=== PATIENT | male | born 2005 | race Caucasian/White ===

== ENCOUNTER 2025-01-27 20:50 | Emergency (ER) | payer BC, SELFPAY ==
[2025-01-27 20:53] VITALS: BP 160/99
[2025-01-27 21:05] VITALS: BMI 38.7
[2025-01-27 21:10] VITALS: BP 125/79
[2025-01-27] MEDS: ADRENALIN 0.3 MG IM (21:22)
[2025-01-27] MEDS: PEPCID 20 MG IV (21:23)
--- NOTE | 2025-01-27 21:24 | ED.GENMED ---
History of Present Illness
<Karine Harrington MD - Last Filed: 01/27/25 22:34>
General
Chief Complaint: Allergic Reaction
Source: patient and family (mom)
Exam Limitations: none
Time Seen by Provider: 01/27/25 21:16
Nursing documentation reviewed up to this point in time: agreed with
<Kristin Ray MD, Resident - Last Filed: 01/28/25 00:38>
History of Present Illness
History of Present Illness:
19-year-old male without any significant past medical history presents the ER for allergic reaction. He was stung by a hornet this afternoon between 3 and 4 PM at work. He started to feel itchy all over and when he got home and took a shower he
noticed a significant rash all over his back, abdomen and lower extremities. He started to have some chest pain, SOB and lip swelling. His mom came home from work, gave him 50 mg of Benadryl and brought him to the ER for further evaluation.
Currently, patient feels like his chest tightness is decreasing and he is able to breathe better.
Past History
<Karine Harrington MD - Last Filed: 01/27/25 22:34>
Past History
ED Past Medical History: Asthma (As a young child)
Social History
Tobacco: Non-smoker
Alcohol: None
Drug: None
Personal: Single
Living: with family
Employment: Other
<Kristin Ray MD, Resident - Last Filed: 01/28/25 00:38>
Past History
ED Past Medical History: None
ED Past Surgical History: Orthopedic
Family History
Family History: Other
Review of Systems
<Karine Harrington MD - Last Filed: 01/27/25 22:34>
Review of Systems
Other source history: family
Cardiac: Reports chest pain
Skin: Reports rash
Psychiatric: Reports no symptoms
<Kristin aRy MD, Resident - Last Filed: 01/28/25 00:38>
Review of Systems
Allergies reviewed?: Yes
Constitutional: Reports no symptoms
EENT: Reports mouth swelling
Respiratory: Reports trouble breathing
Cardiac: Reports chest pain
ABD/GI: Reports no symptoms
: Reports no symptoms
Musculoskeletal: Reports no symptoms
Skin: Reports itching
Neurological: Reports no symptoms
Endocrine: Reports no symptoms
Hematologic/Lymphatic: Reports no symptoms
Phy Exam
<Karine Harrington MD - Last Filed: 01/27/25 22:34>
Physical Exam
Physical Exam:
General: Well-appearing
Head: Atraumatic
Cardiac: Regular S1, S2, no murmurs
Respiratory: Clear breath sounds bilaterally, no wheezes. Mild right lower lip swelling. Mild uvular swelling. No stridor. No pooling of saliva.
Abdomen: Soft, nontender, nondistended, normal bowel sounds in all 4 quadrants
Extremities: No peripheral edema
Skin: Diffuse hives all over trunk, abdomen, lower extremities.
<Kristin Ray MD, Resident - Last Filed: 01/28/25 00:38>
Physical Exam
Physical Exam:
General: Well-appearing
Head: Atraumatic
Cardiac: Regular S1, S2, no murmurs
Respiratory: Clear breath sounds bilaterally, no wheezes
Abdomen: Soft, nontender, nondistended, normal bowel sounds in all 4 quadrants
Extremities: No peripheral edema
Skin: Diffuse hives all over trunk, abdomen, lower extremities.
General Physical Exam
General Presentation: well appearing
General age: appears stated age
General Skin: warm, dry and other (Diffuse hives all over trunk, abdomen, lower extremities )
General Habitus: obese
General Mental: alert
General Hydration: appears well hydrated
Course
<Karine Harrington MD - Last Filed: 01/27/25 22:34>
Orders/Labs/Results
Orders:
Orders
01/27/25 21:16
Dexamethasone Sod Phosphate [Decadron] 10 mg IV NOW STA
EPINEPHrine PF [Adrenalin] 0.3 mg IM NOW STA
01/27/25 21:17
Diphenhydramine [Benadryl] 50 mg IV NOW STA
Famotidine [Pepcid] 20 mg IV NOW STA
Vital Signs
Initial and Last Documented VS:
Initial Vital Signs
Temp Pulse Resp BP Pulse Ox
98.4 F 83 18 160/99 100
01/27/25 20:53 01/27/25 20:53 01/27/25 20:53 01/27/25 20:53 01/27/25 20:53
Last Documented Vital Signs
Temp Pulse Resp BP Pulse Ox
98.4 F 74 13 126/57 96
01/27/25 20:53 01/28/25 00:00 01/28/25 00:00 01/28/25 00:00 01/28/25 00:00
<Kristin Ray MD, Resident - Last Filed: 01/28/25 00:38>
Orders/Labs/Results
Orders:
Orders
01/27/25 21:16
Dexamethasone Sod Phosphate [Decadron] 10 mg IV NOW STA
EPINEPHrine PF [Adrenalin] 0.3 mg IM NOW STA
01/27/25 21:17
Diphenhydramine [Benadryl] 50 mg IV NOW STA
Famotidine [Pepcid] 20 mg IV NOW STA
Vital Signs
Initial and Last Documented VS:
Initial Vital Signs
Temp Pulse Resp BP Pulse Ox
98.4 F 83 18 160/99 100
01/27/25 20:53 01/27/25 20:53 01/27/25 20:53 01/27/25 20:53 01/27/25 20:53
Last Documented Vital Signs
Temp Pulse Resp BP Pulse Ox
98.4 F 74 13 126/57 96
01/27/25 20:53 01/28/25 00:00 01/28/25 00:00 01/28/25 00:00 01/28/25 00:00
<Karine Harrington MD - Last Filed: 01/27/25 22:34>
MDM/Problems Addressed
Chronic conditions affecting care: Asthma
Acute Exacerbation and/or Progression of Chronic Illness:
Patient is breathing comfortably with no sign of any exacerbation of asthma or wheezing
<Kristin Ray MD, Resident - Last Filed: 01/28/25 00:38>
MDM/Problems Addressed
Differential Diagnosis Includes:
Allergic reaction, asthma, URI
MDM/Problems Addressed:
Presentation consistent with acute allergic reaction to hornet sting. Patient received 50 mg of Benadryl prior to admission. Will provide dexamethasone, epi, famotidine to further treat the allergic reaction. Vitals stable satting well on room
air.
<Karine Harrington MD - Last Filed: 01/27/25 22:34>
*Pulse Oximetry
SaO2: 97
Oxygen Mode of Delivery: Room air
Patient hypoxic: no
*EKG
Interpreted by ED Provider?: NA
*Field Laborer Interpretation
Rate: normal
Interpretation: normal
Rhythm: sinus
*Critical Care Note
Total Time (30-74mins, 75-104mins- exclusive of procedures): 35 minutes
comment:
35 minutes of critical care given to the patient including frequent reassessments of his airway, itching and rash.
Data Reviewed
Source: patient and family (Mother who is at the bedside)
ED Attending Note
<Karine Harrington MD - Last Filed: 01/27/25 22:34>
-
Portions of this chart may have been created with voice recognition software.� Occasional wrong word or��sound alike� substitutions may have occurred due to the inherent limitations of voice recognition software.
Discharge Plan
Departure
Patient Disposition: Home (Routine Discharge)
Date of Disposition: 01/28/25
Time of Disposition: 00:01
Patient with high blood pressure during this ER visit?: Yes
Discharge Problem:
Anaphylactic reaction, Allergic reaction, Anaphylaxis due to hornet venom
Instructions: Anaphylaxis
Prescriptions:
New
epinephrine [EpiPen 2-Jaylen] 0.3 mg/0.3 mL auto-injector
0.3 mg IM ONCE Qty: 2 0RF
Referrals:
Roland Brantley MD [Family Provider, Pediatrics]
Activity Restrictions/Additional Instructions:
Please take 25 to 50 mg of Benadryl every 8 hours while awake for any lingering symptoms.
In case of any future serious reactions, please use EpiPen as prescribed.
Interventions
Interventions:
*Risk Screen - Suicide Last Done: 01/27/25 20:53
*General Assessment Last Done: 01/27/25 20:53
*Neglect/Abuse Screening Last Done: 01/27/25 21:05
*ED- Fall Risk Assessment Last Done: 01/27/25 21:05
*ED COVID-19 Vaccine History Last Done: 01/27/25 21:05
*ED Influenza Vaccine History Last Done: 01/27/25 21:05
*Nursing Disposition Last Done: 01/28/25 00:17
ED- Cardiac Assessment Last Done: 01/27/25 21:17
ED- Pulmonary Assessment Last Done: 01/27/25 21:15
ED-Skin Assessment Last Done: 01/27/25 21:16
Discharge Date and Time
Discharge Date/Time: 01/28/25 00:15
Print Language: GUYANESE
[2025-01-27] MEDS: DECADRON 10 MG IV (21:27)
[2025-01-27 22:00] VITALS: BP 133/71
[2025-01-27 23:00] VITALS: BP 135/72
[2025-01-28] VITALS: BP 126/57
== END 2025-01-28 00:15 | disposition home or self-care (01) ==
LOC: EMR 20:50
PROVIDERS: EMERGENCY PHYSICIAN Emergency Medicine; FAMILY PHYSICIAN Pediatrics
DX: T63.451A Toxic effect of venom of hornets, accidental (unintentional), initial encounter (principal); T78.2XXA Anaphylactic shock, unspecified, initial encounter; J45.909 Unspecified asthma, uncomplicated
CPT/HCPCS: 99291; 96374; 96375; 96372